=== PATIENT | female | born 1990 | race Caucasian/White ===

== ENCOUNTER → 2017-04-15 | Outpatient (CLI) | payer OTHER ==
[~2017-04-15] MED LIST: ASCO500 PO; AZAT50 PO; BC IMPLANT; BENZACLIN GEL 335 GM; CEPH500 PO; CLON.5 PO; Cleocin HCl300 MG PO; DICY20 PO; DULO30 PO; ENTOCORT PO; ERGO400 PO; ERYT.5TO OD; FERR325 PO; HYDACE5 PO; HYOS0.375T PO; KETO10 PO; Klonopin0.5 MG PO; LIDO2L TOP; MEDR150I IM; MESA400ER PO; MOXIOPS OP; OMEP20ER PO; OMEP40CA12 PO; OXYACE5T PO; OXYACE7.5T PO; OXYC10TA19 PO; OXYC15ER PO; OXYC5 PO; PRED10 PO; PRED20 PO; PROM25 PO; PROM25S PR; Prednisone20 MG PO; RXTOBROPSO OS; SPIR50 PO; SUCR1 PO; SULF10OPSA OD; Silvadene20 GM TOP; TRAM50 PO; TRET.1TC TOP; Ultram50 MG PO; VENL75ER PO
[2017-04-15 13:56] LABS: U Amphetamine Screen DETECTED; U Barbituate Screen Not Detected; U Benzodiazapine Screen Not Detected; U Buprenorphine Screen DETECTED; U Cannabinoids Screen Not Detected; U Cocaine Screen Not Detected; U Methadone Screen Not Detected; U Methamphetamine Screen Not Detected; U Opiates Screen Not Detected; U Oxycodone Screen Not Detected; U Phencyclidine Screen Not Detected; U Propoxyphene Screen Not Detected
[2017-04-16 18:03] LABS: MDA Not Detected (NOTDET); MDEA Not Detected (NOTDET); MDMA Not Detected (NOTDET)
[2017-04-16 19:06] LABS: Norbuprenorphine GCMS 99 ng/mL (NOTDET)
== END | disposition home or self-care (01) ==
LOC: LAB SHORT 12:21
PROVIDERS: Obstetrics & Gynecology
DX: Z34.81 Encounter for supervision of other normal pregnancy, first trimester (principal)
CPT/HCPCS: G0480

== ENCOUNTER → 2017-05-27 | Outpatient (CLI) | payer OTHER ==
[2017-05-28 10:07] LABS: Source Vaginal/Cervical
== END | disposition home or self-care (01) ==
LOC: LAB 13:45
PROVIDERS: Obstetrics & Gynecology
DX: Z36.89 Encounter for other specified antenatal screening (principal)
CPT/HCPCS: 87491; 87591; G0123

== ENCOUNTER 2017-07-01 07:09 | Inpatient (IN) | payer OTHER ==
[~2017-07-01] VITALS: Ht 154.9 cm; Wt 51.0 kg
[2017-07-01 08:45] LABS: BASOPHILS ABSOLUTE AUTO 0.01 K/mm3 (0.00-0.23); BASOPHILS PERCENT AUTO 0 % (0-2); EOSINOPHILS PERCENT AUTO 2 % (0-6); Hematocrit 34.3 % (33.0-51.0); Hemoglobin 11.4 g/dL (11.5-16.0); IMMATURE GRAN ABSOLUTE AUTO 0.03 K/mm3 (0.00-0.10); IMMATURE GRAN PERCENT AUTO 0 % (0-1); LYMPHOCYTES ABSOLUTE AUTO 1.86 K/mm3 (0.84-5.20); LYMPHOCYTES PERCENT AUTO 20 % (21-46); MONOCYTES ABSOLUTE AUTO 0.57 K/mm3 (0.16-1.47); MONOCYTES PERCENT AUTO 6 % (4-13); Mean Corpuscular HGB 30.4 pg (26.0-34.0); Mean Corpuscular HGB Conc 33.2 g/dL (31.5-36.5); Mean Corpuscular Volume 92 fL (80-100); Mean Platelet Volume 10.9 fL (9.1-12.4); NEUTROPHILS ABSOLUTE AUTO 6.64 K/mm3 (1.96-9.15); NEUTROPHILS PERCENT AUTO 71 % (41-73); Platelet Count 228 K/mm3 (150-400); RDW Coefficient Variation 13.5 % (11.7-14.2); RDW Standard Deviation 45.9 fL (35.1-46.3); Red Blood Cell Count 3.75 M/mm3 (3.80-5.20); White Blood Cell Count 9.31 K/mm3 (4.00-11.30)
[2017-07-02 05:53] LABS: Hematocrit 37.1 % (33.0-51.0); Hemoglobin 12.6 g/dL (11.5-16.0); Mean Corpuscular HGB 30.7 pg (26.0-34.0); Mean Corpuscular Volume 90 fL (80-100); Mean Platelet Volume 10.8 fL (9.1-12.4); Platelet Count 254 K/mm3 (150-400); RDW Coefficient Variation 13.3 % (11.7-14.2); RDW Standard Deviation 43.9 fL (35.1-46.3); Red Blood Cell Count 4.11 M/mm3 (3.80-5.20); White Blood Cell Count 15.12 K/mm3 (4.00-11.30)
== END 2017-07-02 13:09 | disposition home or self-care (01) | DRG 775 ==
LOC: BC 07:09
PROVIDERS: Obstetrics & Gynecology
PROC: 10E0XZZ Delivery of Products of Conception, External Approach (ICD-10-PCS; principal; 2017-07-01)
PROC: 3E0P7VZ Introduction of Hormone into Female Reproductive, Via Natural or Artificial Opening (ICD-10-PCS; 2017-07-01)
DX: O36.4XX0 Maternal care for intrauterine death, not applicable or unspecified (principal); Z3A.20 20 weeks gestation of pregnancy; Z37.1 Single stillbirth
CPT/HCPCS: 36415; 85025; 85027; 86850; 86900; 86901; 87070; 87081; 88305; J3010

== ENCOUNTER 2018-11-04 06:51 | Emergency (ER) | payer OTHER ==
[~2018-11-04] VITALS: Ht 154.9 cm; Wt 49.9 kg
[2018-11-04] MEDS ORDERED: VENL25 (07:11)
[2018-11-04] MEDS ORDERED: SPIR25 (07:11)
[2018-11-04 08:40] LABS: U Amphetamine Screen DETECTED
[2018-11-04 08:41] LABS: U Barbituate Screen Not Detected; U Benzodiazapine Screen Not Detected; U Buprenorphine Screen Not Detected; U Cannabinoids Screen DETECTED; U Cocaine Screen Not Detected; U Methadone Screen Not Detected; U Methamphetamine Screen Not Detected; U Opiates Screen Not Detected; U Oxycodone Screen Not Detected; U Phencyclidine Screen Not Detected; U Propoxyphene Screen Not Detected
[2018-11-04] MEDS ORDERED: Flagyl500 MG PO (11:55)
[2018-11-05 07:07] LABS: HCV ANTIBODY <0.1 (0.0-0.9); HIV SCREEN 4TH GENERATION WRFX Non Reactive (Non Reactive)
== END 2018-11-04 12:11 | disposition home or self-care (01) ==
LOC: ER 06:51
PROVIDERS: Emergency Medicine; Registered Nurse Community Health
DX: F19.10 Other psychoactive substance abuse, uncomplicated (principal); K27.9 Peptic ulcer, site unspecified, unspecified as acute or chronic, without hemorrhage or perforation; G89.29 Other chronic pain; M54.5 Low back pain; F41.9 Anxiety disorder, unspecified; F43.10 Post-traumatic stress disorder, unspecified
CPT/HCPCS: 36415; 80307; 80346; 81025; 86317; 86592; 86803; 87389; 96372; A9270-GY; G0480; J0696

== ENCOUNTER 2019-03-09 21:43 | Emergency (ER) | payer OTHER ==
[~2019-03-09] VITALS: Ht 154.9 cm; Wt 45.8 kg
[~2019-03-09 21:43] MED LIST changes: +Flagyl500 MG PO; +SPIR25; +VENL25
[2019-03-09 22:27] LABS: BASOPHILS ABSOLUTE AUTO 0.03 K/mm3 (0.00-0.23); BASOPHILS PERCENT AUTO 0 % (0-2); EOSINOPHILS ABSOLUTE AUTO 0.03 K/mm3 (0.00-0.68); EOSINOPHILS PERCENT AUTO 0 % (0-6); Hematocrit 39.4 % (33.0-51.0); Hemoglobin 13.2 g/dL (11.5-16.0); IMMATURE GRAN ABSOLUTE AUTO 0.02 K/mm3 (0.00-0.10); IMMATURE GRAN PERCENT AUTO 0 % (0-1); LYMPHOCYTES ABSOLUTE AUTO 2.14 K/mm3 (0.84-5.20); LYMPHOCYTES PERCENT AUTO 21 % (21-46); MONOCYTES ABSOLUTE AUTO 0.74 K/mm3 (0.16-1.47); MONOCYTES PERCENT AUTO 7 % (4-13); Mean Corpuscular HGB 30.6 pg (26.0-34.0); Mean Corpuscular HGB Conc 33.5 g/dL (31.5-36.5); Mean Corpuscular Volume 91 fL (80-100); Mean Platelet Volume 9.6 fL (9.1-12.4); NEUTROPHILS ABSOLUTE AUTO 7.33 K/mm3 (1.96-9.15); NEUTROPHILS PERCENT AUTO 71 % (41-73); Platelet Count 292 K/mm3 (150-400); RDW Coefficient Variation 13.7 % (11.7-14.2); RDW Standard Deviation 46.3 fL (35.1-46.3); Red Blood Cell Count 4.31 M/mm3 (3.80-5.20); White Blood Cell Count 10.29 K/mm3 (4.00-11.30)
[2019-03-09 22:50] LABS: Alanine Aminotransfer (ALT/SGP 26 U/L (12-78); Albumin, Blood 4.4 g/dL (3.4-5.0); Albumin/Globulin Ratio 1.3 (0.8-1.8); Alk Phos 58 U/L (50-136); Anion Gap 7 mmol/L (6-16); Aspartate Aminotrans (AST/SGOT 23 U/L (12-37); Bilirubin, Total 0.5 mg/dL (0.1-1.0); Blood Urea Nitrogen 11 mg/dL (8-24); Bun/Creatinine Ratio 13.5 (12.0-20.0); CO2, Blood 25 mmol/L (21-32); Calcium, Blood 9.4 mg/dL (8.5-10.1); Chloride, Blood 106 mmol/L (98-108); Creatinine, Blood 0.81 mg/dL (0.40-1.00); Globulin, Blood 3.3 g/dL (2.2-4.0); Glomerular Filtration Rate >60 (60-); Glucose, Blood 114 mg/dL (70-99); Potassium, Blood 3.8 mmol/L (3.5-5.5); Sodium, Blood 138 mmol/L (136-145); Total Protein, Blood 7.7 g/dL (6.4-8.2)
[2019-03-09 23:02] LABS: Source, Urine Clean Catch
[2019-03-09 23:03] LABS: Beta HCG, Quantitative, Serum 36291 mIU/mL (0-3)
[2019-03-09 23:09] LABS: Bilirubin, Urine Neg (Neg); Blood, Urine Neg (Neg); Glucose Qualitative, Urine Neg (Neg); Ketones, Urine 1+ (Neg); Leukocyte Esterase, Urine 1+ (Neg); Nitrite, Urine Neg (Neg); Protein, Urine 2+ (Neg); Urobilinogen, Urine NORM (Normal); pH, Urine 6.5 (5.0-8.0)
[2019-03-09 23:17] LABS: Color, Urine Yellow (P-Yellow)
[2019-03-09 23:18] LABS: Amorphous Light (0-Heavy); Appearance, Urine Hazy (Clear); Bacteria Few /hpf; Mucus Mod (0-Heavy); Red Blood Cells, Urine Not Seen /hpf (0-2); Squamous Epithelial Cells Few /hpf (Few); White Blood Cells, Urine 0-2 /hpf (0-5)
[2019-03-09 23:21] LABS: U Amphetamine Screen DETECTED; U Barbituate Screen Not Detected; U Benzodiazapine Screen Not Detected; U Buprenorphine Screen Not Detected; U Cannabinoids Screen Not Detected; U Cocaine Screen Not Detected; U Methadone Screen Not Detected; U Methamphetamine Screen Not Detected; U Opiates Screen Not Detected; U Oxycodone Screen Not Detected; U Phencyclidine Screen Not Detected; U Propoxyphene Screen Not Detected
== END 2019-03-10 00:23 | disposition home or self-care (01) ==
LOC: ER 21:43
PROVIDERS: Physician Assistant
DX: O99.321 Drug use complicating pregnancy, first trimester (principal); F15.10 Other stimulant abuse, uncomplicated; Z3A.01 Less than 8 weeks gestation of pregnancy; O99.331 Smoking (tobacco) complicating pregnancy, first trimester; F17.290 Nicotine dependence, other tobacco product, uncomplicated
CPT/HCPCS: 36415; 80053; 81001; 84702; 85025; 99284; G0480

== ENCOUNTER 2019-10-19 11:21 | Inpatient (IN) | payer OTHER ==
[~2019-10-19] VITALS: Ht 154.9 cm; Wt 61.0 kg
[2019-10-19] MEDS ORDERED: PRENATAL TABLE1 EAC2 PO (12:30)
[2019-10-19] MEDS ORDERED: TUMS500 MG (12:30)
[2019-10-19] MEDS ORDERED: ACET500 (12:30)
[2019-10-19 14:35] LABS: BASOPHILS ABSOLUTE AUTO 0.04 K/mm3 (0.00-0.23); BASOPHILS PERCENT AUTO 0 % (0-2); EOSINOPHILS ABSOLUTE AUTO 0.08 K/mm3 (0.00-0.68); EOSINOPHILS PERCENT AUTO 1 % (0-6); Hematocrit 34.3 % (33.0-51.0); Hemoglobin 11.1 g/dL (11.5-16.0); IMMATURE GRAN PERCENT AUTO 1 % (0-1); LYMPHOCYTES ABSOLUTE AUTO 2.11 K/mm3 (0.84-5.20); LYMPHOCYTES PERCENT AUTO 18 % (21-46); MONOCYTES PERCENT AUTO 4 % (4-13); Mean Corpuscular HGB 28.8 pg (26.0-34.0); Mean Corpuscular HGB Conc 32.4 g/dL (31.5-36.5); Mean Corpuscular Volume 89 fL (80-100); Mean Platelet Volume 12.5 fL (9.1-12.4); NEUTROPHILS ABSOLUTE AUTO 9.18 K/mm3 (1.96-9.15); NEUTROPHILS PERCENT AUTO 76 % (41-73); Platelet Count 216 K/mm3 (150-400); RDW Standard Deviation 45.4 fL (35.1-46.3); Red Blood Cell Count 3.85 M/mm3 (3.80-5.20); White Blood Cell Count 12.01 K/mm3 (4.00-11.30)
--- NOTE | 2019-10-19 15:41 | NUR ---
PT ARRIVES TO [facility] C/O SROM, COPIOUS AMOUNTS OF CLEAR FLUID NOTED, NIT +, CALL TO MD, ADMITTED FOR LABOR. PT HAS TEMP ON ARRIVAL, COVID TEST DONE, NEG, THEN CHANGED FROM DROPLET TO CONTACT ISOLATION. PLANS EPIDURAL. DISCUSSED CSD INVOLVEMENT, PT UNDERSTANDS. ARGEES TO [facility]. LAST USED METH 03/07/19. HAS BEEN CLEAN SINCE. LIVES WITH HER GRANDPARENTS AND 10 Y.O SON. SHE HAD A 17 WEEK FD DUE TO METH USE. GRANDPARENTS ARE VERY SUPPORTIVE. COPING WELL.
[2019-10-19 15:55] LABS: U Amphetamine Screen Not Detected; U Barbituate Screen Not Detected; U Benzodiazapine Screen Not Detected; U Buprenorphine Screen Not Detected; U Cannabinoids Screen Not Detected; U Cocaine Screen Not Detected; U Methadone Screen Not Detected; U Methamphetamine Screen Not Detected; U Opiates Screen Not Detected; U Oxycodone Screen Not Detected; U Phencyclidine Screen Not Detected; U Propoxyphene Screen Not Detected
--- NOTE | 2019-10-20 07:42 | NUR ---
10 YEAR OLD LIVES WITH GRANDPARENTS PAST 2 YEARS
--- NOTE | 2019-10-20 11:19 | NUR ---
[facility] POSITIVE CULTURE NO OUT BREAK FOR 3-4 YEARS
--- NOTE | 2019-10-20 11:31 | NUR ---
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
--- NOTE | 2019-10-21 14:03 | NUR ---
PT DISCHARGED TO HOME. DISCHARGE INSTRUCTIONS GIVEN. TO FOLLOW UP 10-22-19 AT 0930 WITH HUSSAIN FOR WEIGHT CHECK AND TCB CHECK. PT ADVISED THAT IF FOR SOME REASON SHE CANNOT MAKE IT AT THAT TIME THAT SHE NEEDS TO CALL TODAY AND TRY TO RE-SCHEDULE FOR A DIFFERENT TIME. PT REPORTED THAT SHE WOULD. NO FURTHER QUESTIONS OR CONCERNS AT THIS TIME
== END 2019-10-21 13:24 | disposition home or self-care (01) | DRG 806 ==
LOC: OBS 11:21 → BC 11:22 → OBS 12:13 → BC 12:18
PROVIDERS: ADMIT Obstetrics & Gynecology
PROC: 10E0XZZ Delivery of Products of Conception, External Approach (ICD-10-PCS; principal; 2019-10-19)
DX: O62.3 Precipitate labor (principal); O75.2 Pyrexia during labor, not elsewhere classified; Z37.0 Single live birth; Z3A.38 38 weeks gestation of pregnancy
CPT/HCPCS: 36415; 81003; 85025; 86850; 86900; 86901; 87081; A9270; J0290; J1580; J1885; J2001; J2590; J3010; J7120; U0002

== ENCOUNTER 2020-07-06 21:10 | Emergency (ER) | payer OTHER ==
[~2020-07-06] VITALS: Ht 154.9 cm; Wt 55.8 kg
[~2020-07-06 21:10] MED LIST changes: +ACET500; +PRENATAL TABLE1 EAC2 PO; +TUMS500 MG
== END 2020-07-07 02:36 | disposition home or self-care (01) ==
LOC: ER 21:10
DX: F41.9 Anxiety disorder, unspecified (principal); Z79.899 Other long term (current) drug therapy; Z87.891 Personal history of nicotine dependence
CPT/HCPCS: 99282

== ENCOUNTER → 2020-08-17 | Outpatient (CLI) | payer OTHER | END | disposition home or self-care (01) | LOC: LAB EV 15:19 → LAB SHORT 15:19 | DX: L73.9 Follicular disorder, unspecified (principal) | CPT/HCPCS: 87070; 87077; 87186; 87205 ==